=== PATIENT | male | born 1990 | race Caucasian/White ===

== ENCOUNTER 2016-09-26 17:16 | Emergency (ER) | payer BC ==
--- NOTE | 2016-09-26 17:44 | ER PHYSICIAN DOCUMENTATION ---
Physician Documentation [facility] Name:Toy Lara Age:26 yrs Sex:Male :1990 Arrival Date:09/26/2016 Time:17:16 Bed1 Private MD: Mina Cox Disposition: 09/26/16 17:31 Discharged to Home/Self Care. Impression: Palpitations Sinus Tachycardia. - Condition is Good. - Discharge Instructions: Arrhythmia - PALPITATIONS. - Medical Reconciliation form form. - Follow up: Emergency Department; When: As needed; Reason: Worsening of condition. - Problem is new. - Symptoms are resolved. HPI: 09/26 17:28 This 26 yrs old Male presents to ER via Walk In with complaints of fast Pulse.sd 17:28 The patient presents with a history of heart racing. Context: The symptoms occur with sc exercise, with strenuous activity. Onset: The symptom(s)/episode began/occurred today. Modifying factors: The symptoms are aggravated by starting phentermine two days ago for weight loss. Associated signs and symptoms: The patient has no apparent associated signs or symptoms. Severity of symptoms: At their worst the symptoms were mild. Historical: - Allergies: No known drug Allergies; - Home Meds: 1. phentermine oral - PMHx: None; - PSHx: None; - Tetanus: < 10 years. - Ebola Screening: : Patient denies exposure to infectious person. Patient denies travel to an Ebola-affected area in the 21 days before illness onset. . - Social history: Smoking status: Patient states was never smoker of tobacco. Patient/guardian denies using alcohol, marijuana. ROS: 17:29 Constitutional: Negative for fever, chills, and weight loss. sc Eyes: Negative for injury, pain, redness, and discharge. ENT: Negative for injury, pain, and discharge. Neck: Negative for injury, pain, and swelling. Respiratory: Negative for shortness of breath, cough, wheezing, and pleuritic chest pain. Abdomen/GI: Negative for abdominal pain, nausea, vomiting, diarrhea, and constipation. Back: Negative for injury and pain. MS/Extremity: Negative for injury and deformity. Skin: Negative for injury, rash, and discoloration. 17:29 Neuro: Negative for headache, weakness, numbness, tingling, and seizure. sc 17:29 Cardiovascular: Positive for palpitations. 17:29 Psych: Positive for insomnia. Exam: Constitutional: This is a well developed, well nourished patient who is awake, alert, and in no acute distress. Head/Face: Normocephalic, atraumatic. Eyes: Pupils equal round and reactive to light, extra-ocular motions intact. Lids and lashes normal. Conjunctiva and sclera are non-icteric and not injected. Cornea within normal limits. Periorbital areas with no swelling, redness, or edema. ENT: Nares patent. No nasal discharge, no septal abnormalities noted. Tympanic membranes are normal and external auditory canals are clear. Oropharynx with no redness, swelling, or masses, exudates, or evidence of obstruction, uvula midline. Mucous membranes moist. Neck: Trachea midline, no thyromegaly or masses palpated, and no cervical lymphadenopathy. Supple, full range of motion without nuchal rigidity, or vertebral point tenderness. No meningismus. Chest/axilla: Normal chest wall appearance and motion. Nontender with no deformity. No lesions are appreciated. Cardiovascular: Regular rate and rhythm with a normal S1 and S2. No gallops, murmurs, or rubs. Normal PMI, no JVD. No pulse deficits. Respiratory: Lungs have equal breath sounds bilaterally, clear to auscultation and percussion. No rales, rhonchi or wheezes noted. No increased work of breathing, no retractions or nasal flaring. Abdomen/GI: Soft, non-tender, with normal bowel sounds. No distension or tympany. No guarding or rebound. No evidence of tenderness throughout. Back: No spinal tenderness. No costovertebral tenderness. Full range of motion. Skin: Warm, dry with normal turgor. Normal color with no rashes, no lesions, and no evidence of cellulitis. MS/ Extremity: Pulses equal, no cyanosis. Neurovascular intact. Full, normal range of motion, negative Homans's, calves equal bilaterally. 17:30 Neuro: Awake and alert, GCS 15, oriented to person, place, time, and situation. sd Cranial nerves II-XII grossly intact. Motor strength 5/5 in all extremities. Sensory grossly intact. Cerebellar exam normal. Normal gait. Vital Signs: 17:42 BP 192 / 82; Pulse 102; Resp 20; Pulse Ox 92% on R/A; Pain 06/15; st MDM: 17:28 Patient medically screened. sd 17:30 Differential diagnosis: arrythmia, dehydration, stress disorder. Data reviewed: vital sc signs, nurses notes, and as a result, I will continue to observe the patient. Counseling: I had a detailed discussion with the patient and/or guardian regarding: the historical points, exam findings, and any diagnostic results supporting the discharge/admit diagnosis, the need for outpatient follow up, to return to the emergency department if symptoms worsen or persist or if there are any questions or concerns that arise at home. Dispensed Medications: No medications were administered Signatures: Susan Vanegas RN RN st Chew, Scott, MD MD sd
--- NOTE | 2016-09-26 17:44 | ER NURSING DOCUMENTATION ---
Nurse's Notes [facility] Name:Toy Lara Age:26 yrs Sex:Male :1990 Arrival Date:09/26/2016 Time:17:16 Bed1 Private MD: Diagnosis:Palpitations Sinus Tachycardia Presentation: 09/26 17:25 Presenting complaint: Patient states: tachycardia. Transition of care: patient was not nf received from another setting of care. Notified ED Physician of patient's arrival and CC Dr. Alberto notified. 17:25 Acuity: DANIELLA 3 nf 17:25 Method Of Arrival: Walk In nf Triage Assessment: 17:25 General: Appears in no apparent distress, well nourished, well groomed, Behavior is nf pleasant. 17:41 General: Appears in no apparent distress, Behavior is cooperative. General: pt got here st from [place] today. pt also started taking phentermine for weight lose recently and now he has had an elevated pulse all day. . Pain: Complains of pain in anterior aspect of left upper chest Pain currently is 1 out of 10 on a pain scale. Cardiovascular: Capillary refill < 3 seconds Pulses are all present. Rhythm is sinus tachycardia. Respiratory: No deficits noted. GI: No deficits noted. Historical: - Allergies: No known drug Allergies; - Home Meds: 1. phentermine oral - PMHx: None; - PSHx: None; - Tetanus: < 10 years. - Ebola Screening: : Patient denies exposure to infectious person. Patient denies travel to an Ebola-affected area in the 21 days before illness onset. . - Social history: Smoking status: Patient states was never smoker of tobacco. Patient/guardian denies using alcohol, marijuana. Screenin:43 Infectious Disease Risk None. Nutritional screening: No deficits noted. st Vital Signs: 17:42 BP 192 / 82; Pulse 102; Resp 20; Pulse Ox 92% on R/A; Pain 1/10; st ED Course: 17:21 Patient arrived in ED. arc 17:25 Uma Rodriguez RN is Primary Nurse. nf 17:25 Triage completed. nf 17:28 Mina Alberto MD is Attending Physician. sc 17:44 Valuables Remains with patient. st Administered Medications: No medications were administered Outcome: 17:31 Discharge ordered by . sc 17:44 Discharged to home ambulatory. st 17:44 Condition: stable 17:44 Discharge instructions given to patient, Instructed on discharge instructions, follow up and referral plans. medication usage. 17:44 [address] the ED[address] st 09/27 11:53 Discharge F/U Call: Spoke with: patient. other: Name: pt is feeling good today. pt st has no questions or concerns. Signatures: Susan Vanegas RN RN st Friel, Nicole, RN RN nf Chew, Scott, MD MD sc Chew, Amelia, Yobani Reg arc
== END 2016-09-26 17:44 | disposition home or self-care (01) ==
LOC: ER 17:16
DX: I49.8 Other specified cardiac arrhythmias (principal); G47.00 Insomnia, unspecified
CPT/HCPCS: 99281